=== PATIENT | male | born 1970 | race Caucasian/White ===

== ENCOUNTER 2018-07-15 14:30 | Emergency (ER) | payer BC ==
[~2018-07-15] VITALS: Wt 74.8 kg
--- NOTE | ~2018-07-15 | EKG ---
[place], [place] ELECTROCARDIOGRAM REPORT NAME: LYSSA WARD UNIT #: [id number] ROOM: DOCTOR: EPIPHANY DRAFT REPORT BIRTHDATE: [birth year] [facility] Test Date: 2018-07-15 Test Time: 15:11:44 Pat Name: LYSSA WARD Department: Room: Gender: [employer]: : [id number] Requested By: ARTURO PIÑA DNP Order Number: [id number] Reading MD: En Rico MD Measurements Intervals Hart Rate: 76 P: 78 SC: 191 QRS: 49 QRSD: 130 T: 88 QT: 420 QTc: 473 Interpretive Statements Sinus rhythm Probable left atrial enlargement Left ventricular hypertrophy ST elev, probable normal early repol pattern Baseline wander in lead(s) V3 Electronically Signed On 07-16-2018 4:15:42 PST by En Rico MD CM:EKGRPT:ELECTROCARDIOGRAM REPORT [id number] ARTURO PIÑA DNP EPIPHANY DRAFT REPORT ARTURO PIÑA DNP
[2018-07-15 15:14] LABS: BASO % 0.5 % (0.0-1.0); EOS # 0.1 10*3/uL (0.0-0.4); EOS % 1.3 % (1.0-4.0); HEMATOCRIT 44.1 % (42.0-52.0); HEMOGLOBIN 15.1 g/dl (14.0-18.0); LYMPH # 2.2 10*3/uL (1.3-4.4); LYMPH % 25.7 % (27.0-41.0); MEAN CELL VOLUME 90.2 fl (80.0-94.0); MEAN CORPUSCULAR HGB 30.9 pg (27.0-31.0); MEAN CORPUSCULAR HGB CONC 34.2 g/dl (33.0-37.0); MEAN PLATELET VOLUME 9.8 fl (9.6-12.3); MONO # 0.6 10*3/uL (0.1-1.0); MONO % 6.7 % (3.0-9.0); NEUT # 5.7 10*3/uL (2.3-7.9); NEUT % 65.6 % (47.0-73.0); PLATELET COUNT AUTOMATED 219 10*3/uL (130-400); RED BLOOD COUNT 4.89 10*6/uL (4.50-5.90); RED CELL DISTRI WIDTH 12.9 % (0-14.5); WHITE BLOOD COUNT 8.7 10*3/uL (4.8-10.8)
[2018-07-15 15:26] LABS: ACT PARTIAL THROMBO TIME 20.8 SECONDS (20.8-31.5); INTERNATIONAL NORM RATIO 0.9 (2.0-3.5)
[2018-07-15 15:30] LABS: ALBUMIN 3.9 gm/dl (3.1-4.5); ALKALINE PHOSPHATASE 78 U/L (45-117); BUN 13 mg/dl (7-24); CHLORIDE 109 mmol/L (98-107); CREATININE 1.09 mg/dL (0.70-1.30); POTASSIUM 3.8 mmol/L (3.5-5.1); SGOT/AST 43 IU/L (3-35); SGPT/ALT 62 U/L (12-78); SODIUM 141 mmol/L (136-145); TROPONIN I 0.017 ng/ml (<0.045)
[2018-07-15 17:41] LABS: BILIRUBIN NEGATIVE (NEGATIVE); BLOOD NEGATIVE (NEGATIVE); CLARITY SL CLOUDY (CLEAR); COLOR YELLOW (YELLOW); GLUCOSE NEGATIVE (NEGATIVE); KETONE NEGATIVE (NEGATIVE); LEUKO ESTERASE NEGATIVE (NEGATIVE); NITRITE NEGATIVE (NEGATIVE); PH 6.5 (5.0-9.0); UROBILINOGEN 0.2 E.U./dl (0.2-1.0)
[2018-07-15 18:00] LABS: BACTERIA TRACE
== END 2018-07-15 19:02 | disposition short-term general hospital (02) ==
LOC: ED 14:30
PROVIDERS: Nurse Practitioner Family
DX: S01.81XA Laceration without foreign body of other part of head, initial encounter (principal); R55 Syncope and collapse; R06.02 Shortness of breath; F17.200 Nicotine dependence, unspecified, uncomplicated; W19.XXXA Unspecified fall, initial encounter; Y93.89 Activity, other specified; Y92.69 Other specified industrial and construction area as the place of occurrence of the external cause; Y99.9 Unspecified external cause status